=== PATIENT | female | born 1995 | race Caucasian/White ===

== ENCOUNTER 2017-06-28 19:33 | Emergency (ER) | payer OTHER ==
[~2017-06-28] VITALS: Ht 172.7 cm; Wt 65.8 kg
[2017-06-28 20:13] LABS: INFLUENZA A ANTIGEN None Detected (None Detect); INFLUENZA B ANTIGEN None Detected (None Detect)
[2017-06-28 20:37] LABS: ABSOLUTE EOSINOPHILS 0.1 thou/uL (0.0-0.7); ABSOLUTE MONOCYTES 0.6 thou/uL (0.0-1.2); ABSOLUTE NEUTROPHILS 3.1 thou/uL (1.6-8.1); BASOPHILS 0.4 %; EOSINOPHILS 1.6 %; HEMATOCRIT 39.1 % (37.0-47.0); HEMOGLOBIN 13.3 gm/dL (12.0-15.0); LYMPHOCYTES 34.4 %; MCHC 33.9 g/dL (28.0-37.0); MCV 85.4 fL (80.0-100.0); MONOCYTES 10.6 %; MPV 9.4 fl. (7.2-11.1); NUCLEATED RBCS 0 /100WBC; PLATELET COUNT* 202 thou/uL (150-400); RBC 4.57 mil/uL (4.20-5.00); RDW-CV 14.2 % (10.5-14.5); WBC 5.9 thou/uL (4.0-11.0)
[2017-06-28 20:45] LABS: CALCIUM 9.1 mg/dL (8.5-10.1); CREATININE 0.8 mg/dL (0.6-1.3)
[2017-06-28 20:49] LABS: ALBUMIN 4.2 g/dL (3.4-5.0); TOTAL BILIRUBIN 0.3 mg/dL (<0.1-1.0); TOTAL PROTEIN 7.7 g/dL (6.4-8.2)
[2017-06-28] MEDS ORDERED: IBUPROFEN 600600 M1 PO (21:06)
[2017-06-28] MEDS ORDERED: PROAIR HFA8.5 GM INH (21:07)
[2017-06-28 21:22] VITALS: BP 114/66
--- NOTE | 2017-06-29 12:12 | EKG ---
[place] [address] ELECTROCARDIOGRAM REPORT Name: DELVIN PUGH Room: [facility]#: [id number] Admission: 06/28/17 Attend Phys: Discharge: 06/28/17 Date of : [birth year] Report #: [id number] THIS REPORT FOR: //name// [facility] ED Test Date: 2017-06-28 Test Time: 19:54:56 Pat Name: DELVIN PUGH Department: Room: Gender: F [employer] Tech: JUANITO Escobedo : 1995 Requested By: Sai Pratt Order Number: [id number] MD: Jemal Waters Measurements Intervals [place] Rate: 92 P: 57 MN: 141 QRS: 63 QRSD: 84 T: 30 QT: 367 QTc: 455 Interpretive Statements Sinus rhythm Atrial premature complex Probable left atrial enlargement Baseline wander in lead(s) V1 No previous ECG available for comparison Electronically Signed On 06-29-2017 12:12:01 [employer] by Jemal Waters [email or web address] <ELECTRONICALLY SIGNED> By: Jemal Waters MD, [facility] 06/29/17 1212 53 53 Jemal Waters MD, FAC /EPI
== END 2017-06-28 21:23 | disposition home or self-care (01) ==
LOC: M.ERS 19:33
PROVIDERS: Nurse Practitioner Family
DX: J20.9 Acute bronchitis, unspecified (principal); R07.89 Other chest pain

== ENCOUNTER 2019-11-02 20:34 | Emergency (ER) | payer OTHER ==
[~2019-11-02] VITALS: Ht 167.6 cm; Wt 59.0 kg
[~2019-11-02 20:34] MED LIST: IBUPROFEN 600600 M1 PO; PROAIR HFA8.5 GM INH
[2019-11-02 20:55] LABS: URINE BILIRUBIN NEGATIVE (Negative); URINE BLOOD 1+ (Negative); URINE CLARITY CLEAR; URINE COLOR YELLOW; URINE GLUCOSE-RANDOM NEGATIVE (Negative); URINE KETONES NEGATIVE (Negative); URINE LEUKOCYTES-REFLEX TRACE (Negative); URINE NITRITE-REFLEX NEGATIVE (Negative); URINE PROTEIN TRACE (Negative); URINE SPECIFIC GRAVITY >= 1.030 (1.005-1.030); URINE UROBILINOGEN 0.2 E.U./dl (0.2-1.0)
[2019-11-02 21:04] LABS: SQUAMOUS >10 Many /LPF (0-3)
[2019-11-02 21:05] LABS: BACTERIA-REFLEX >30 Many /HPF (None Seen); CASTS None Seen /LPF (None Seen); MUCUS >6 Heavy strn/LPF (None Seen); URINE RBC 0-2 Rare /HPF (0-2); URINE WBC-REFLEX 0-5 Rare /HPF (0-5)
[2019-11-02 21:06] LABS: CRYSTALS None Seen /LPF (None Seen)
[2019-11-02 21:08] LABS: ABSOLUTE EOSINOPHILS 0.1 thou/uL (0.0-0.7); ABSOLUTE LYMPHOCYTES 2.5 thou/uL (0.8-5.3); ABSOLUTE MONOCYTES 0.6 thou/uL (0.0-1.2); ABSOLUTE NEUTROPHILS 2.1 thou/uL (1.6-8.1); BASOPHILS 0.4 %; EOSINOPHILS 2.5 %; HEMATOCRIT 39.1 % (37.0-47.0); HEMOGLOBIN 13.6 gm/dL (12.0-15.0); LYMPHOCYTES 46.7 %; MCH 30.1 pg (26.0-34.0); MCHC 34.7 g/dL (28.0-37.0); MCV 86.9 fL (80.0-100.0); MONOCYTES 10.7 %; MPV 9.6 fl. (7.2-11.1); NUCLEATED RBCS 0 /100WBC; PLATELET COUNT* 215 thou/uL (150-400); POLYS 39.7 %; RDW-CV 13.5 % (10.5-14.5); WBC 5.3 thou/uL (4.0-11.0)
[2019-11-02 21:11] LABS: CALCIUM 8.8 mg/dL (8.5-10.1); CREATININE 0.9 mg/dL (0.6-1.3); POTASSIUM 3.5 mmol/L (3.5-5.1)
[2019-11-02 21:15] LABS: ALBUMIN 3.8 g/dL (3.4-5.0); TOTAL BILIRUBIN 0.3 mg/dL (<0.1-1.0); TOTAL PROTEIN 7.8 g/dL (6.4-8.2)
[2019-11-02] MEDS ORDERED: HYDROCODON-ACE1 EAC8 PO (21:49)
[2019-11-02] MEDS ORDERED: ZOFRAN ODT4 MG PO (22:14)
[2019-11-02 22:16] VITALS: BP 129/79
== END 2019-11-02 22:17 | disposition home or self-care (01) ==
LOC: M.ERS 20:34
PROVIDERS: Emergency Medicine
DX: N20.0 Calculus of kidney (principal)